=== PATIENT | female | born 1985 | race African-American/Black ===

== ENCOUNTER 2019-12-10 10:46 | Emergency (ER) | payer OTHER, MEDICAID, SELFPAY ==
[2019-12-10] VITALS (10 sets, daily range): BP systolic 121–137; BP diastolic 83–104; PULSE 81–103; RESP 15–25; TEMP 37.3; O2SAT 95–99
--- NOTE | ~2019-12-10 | XR_ITS ---
EXAMINATION: XR chest 2V 12/10/2019 12:01 INDICATION: Chest pain PROCEDURE: 2 view chest COMPARISON: No prior studies for comparison. FINDINGS: The lungs are clear. The cardiomediastinal silhouette is within normal limits. There are no pleural effusions. There is no pneumothorax suspected. IMPRESSION: 1: NO ACUTE CARDIOPULMONARY DISEASE. Reviewed, dictated and finalized at location A.
--- NOTE | 2019-12-10 11:03 | ECG_ITS ---
Measurements Intervals [place] Rate: 95 P: 29 [place]: 159 QRS: 26 QRSD: 81 T: 15 QT: 327 QTc: 412 Interpretive Statements SINUS RHYTHM MINIMAL Q WAVES- INFERIOR LEADS BORDERLINE ECG Electronically Signed On 12-10-2019 14:51:31 CDT by Lalo Ortiz D.O.
[2019-12-10] MEDS: ASPIRIN 81 MG CHEWABLE TABLET 324 MG PO (11:09)
[2019-12-10 11:13] LABS: Basophils Percent Auto 0.3 % (0.2-1.2); Eosinophils Absolute Auto 0.1 K/mm3 (0-0.3); Eosinophils Percent Auto 0.7 % (0-4.4); Hematocrit 41.1 % (37.0-47.0); Hemoglobin 13.7 g/dL (12.0-15.0); Immature Granulocyte Absolute 0.02 K/mm3 (0.00-0.031); Immature Granulocyte Percent A 0.2 % (0-0.5); Lymphocytes Absolute Auto 1.31 K/mm3 (0.9-3.2); Mean Corpuscular HGB Conc 33.3 g/dl (32-36); Mean Corpuscular Hemoglobin 26.7 pg (26-34); Mean Corpuscular Volume 80.1 fl (80-100); Mean Platelet Volume 8.7 fl (7.4-10.4); Monocytes Absolute Auto 0.7 K/mm3 (0.1-0.6); Monocytes Percent Auto 7.4 % (2.6-8.5); Neutrophils Absolute Auto 6.7 K/mm3 (1.3-6.7); Neutrophils Percent Auto 76.4 % (45.5-73.1); Platelet Count Result 292 k/mm3 (150-375); Red Blood Count 5.13 M/mm3 (4.2-5.4); Red Cell Distribution Width 13.8 % (11.5-14.5); White Blood Count 8.8 K/mm3 (4.5-10.0)
[2019-12-10 11:23] LABS: Prothrombin Time 12.5 Seconds (11.1-14.7)
[2019-12-10 11:24] LABS: Partial Thromboplastin Time 24.6 SECONDS (22.3-36.8)
[2019-12-10 11:25] LABS: Blood Urea Nitrogen 10 mg/dL (7-17); Carbon Dioxide 25 mmol/L (22-30); Chloride 99 mmol/L (98-107); Estimated CRCL calculation 108 ml/min; Estimated Glomerular Filt Rate > 60; Glucose 110 mg/dL (65-105); Potassium 4.2 mmol/L (3.4-5.0); Sodium 133 mmol/L (137-145)
--- NOTE | 2019-12-10 11:26 | ED.GENADULT ---
HPI - General Adult General Chief complaint: Chest Pain Stated complaint: difficulty swallowing, chest pain Time Seen by Provider: 12/10/19 11:07 History of Present Illness HPI narrative: Patient is a 34 y/o female complaining of intermittent chest pressure radiating to back since earlier today. She rates her pain as 10/10 when it occurs. There is no alleviating or exacerbating factor. She feels there is something in her throat at times. She denies any fever, SOB or cough. Related Data Allergies Allergy/AdvReac Type Severity Reaction Status Date / Time No Known Allergies Allergy Verified 12/10/19 11:07 Review of Systems Constitutional: Constitutional: Denies chills, Denies fever(s), Denies headache(s) and Denies weakness Eyes: Eyes: Denies blurry vision ENT: Denies headache(s) and Denies neck pain Comments: feeling something in throat Cardiovascular: Cardiovascular: Reports chest pain and Denies dyspnea Respiratory: Respiratory: Denies cough and Denies dyspnea Gastrointestinal: Gastrointestinal: Denies abdominal pain, Denies diarrhea, Denies nausea and Denies vomiting Genitourinary: Genitourinary: Denies hematuria and Denies dysuria Musculoskeletal: Musculoskeletal: Denies back pain and Denies neck pain Neurologic: Denies headache(s) and Denies weakness [facility] Social History Social History Gender identity (if verbalized by the patient): Female Exam Const: General: no acute distress and well developed Orientation/consciousness: oriented to person, oriented to place, oriented to time and patient oriented x3 HENMT: Head: normocephalic Ears: external ears normal General nose exam: Normal external nose present Eyes: General: appearance normal, both eyes and all related structures Conjunctivae: conjunctivae normal Neck: Neck: normal visual inspection and full ROM Chest: Chest palpation & inspection: normal inspection of the chest and no tenderness Resp: Effort & Inspection: normal respiratory effort Auscultation: clear to auscultation bilaterally Cardio: Rate: regular rate Rhythm: regular rhythm GI: GI Palp: No abdominal tenderness and Yes Soft to palpation Skin: General skin exam: normal color and turgor normal Neuro: General: oriented to person, oriented to place, oriented to time and patient oriented x3 Cognition (Neuro): normal cognition Extrem: General: normal to inspection, full ROM and no pedal edema Psych: Appearance: grossly normal Mental Status: mental status grossly normal Affect: normal affect Course Vital Signs Vital signs: Vital Signs Temperature 37.3 C 12/10/19 10:58 Pulse Rate 94 12/10/19 10:58 Respiratory Rate 25 H 12/10/19 10:58 Blood Pressure 121/89 12/10/19 10:58 Pulse Oximetry 99 12/10/19 10:58 Temperature 37.3 C 12/10/19 10:58 Pulse Rate 81 12/10/19 15:54 Respiratory Rate 16 12/10/19 15:54 Blood Pressure 129/94 H 12/10/19 15:54 Pulse Oximetry 98 12/10/19 11:46 Medical Decision Making Vital Signs Vital Signs: Vital Signs Temperature 37.3 C 12/10/19 10:58 Pulse Rate 94 12/10/19 10:58 Respiratory Rate 25 H 12/10/19 10:58 Blood Pressure 121/89 12/10/19 10:58 Pulse Oximetry 99 12/10/19 10:58 Temperature 37.3 C 12/10/19 10:58 Pulse Rate 81 12/10/19 15:54 Respiratory Rate 16 12/10/19 15:54 Blood Pressure 129/94 H 12/10/19 15:54 Pulse Oximetry 98 12/10/19 11:46 Lab Data Result diagrams: 12/10/19 11:07 12/10/19 11:07 Labs: Lab Results 12/10/19 12/10/19 12/10/19 Range/Units 11:07 11:07 11:07 WBC 8.8 (4.5-10.0) K/mm3 RBC 5.13 (4.2-5.4) M/mm3 Hgb 13.7 (12.0-15.0) g/dL Hct 41.1 (37.0-47.0) % MCV 80.1 (80-100) fl MCH 26.7 (26-34) pg MCHC 33.3 (32-36) g/dl RDW 13.8 (11.5-14.5) % Plt Count 292 (150-375) k/mm3 MPV 8.7 (7.4-10.4) fl Immature Gran % (Auto) 0.2 (0-0.5) % Neut % (Auto) 76.4 H (45.5-73.
[2019-12-10 11:37] LABS: Troponin I < 0.012 ng/mL (0.000-0.034)
[2019-12-10 13:22] LABS: D Dimer 0.36 ug/mL (<0.48)
[2019-12-10 14:40] LABS: Troponin I < 0.012 ng/mL (0.000-0.034)
== END 2019-12-10 15:50 | disposition home or self-care (01) ==
PROVIDERS: Emergency Provider Emergency Medicine
DX: R07.89 Other chest pain (principal); R94.31 Abnormal electrocardiogram [ECG] [EKG]
CPT/HCPCS: 36415; 71046; 80048; 81025; 84484; 85025; 85380; 85610; 85730; 93005; 99284; A9270